=== PATIENT | male | born 1990 | race Caucasian/White ===

== ENCOUNTER → 2019-10-04 12:27 | Outpatient (CLI) | payer OTHER, SELFPAY ==
--- NOTE | 2019-10-04 12:37 | US_ITS ---
STUDY: RENAL ULTRASOUND - COMPLETE REASON FOR EXAM: Male, 29 years old. Possible kidney stones. TECHNIQUE: Ultrasound evaluation of the kidneys was performed with real-time and static matos-scale imaging. COMPARISON: None. FINDINGS: RIGHT KIDNEY: Normal location of the right kidney, which is normal in size. The right kidney measures 9.8 cm. There is a normal cortex of the right kidney. The renal cortex measures 1.8 cm. There is no right renal mass or cyst. There are no right renal calculi. There is no right hydronephrosis. DISTAL RIGHT URETER: There is non-visualization of the distal right ureter. There is no demonstrated right ureterovesical junction calculus. There is no demonstrated right ureteral jet. LEFT KIDNEY: Normal location of the left kidney, which is normal in size. The left kidney measures 10.4 cm. There is a normal cortex of the left kidney. The renal cortex measures 1. cm. There is no left renal mass or cyst. There are no left renal calculi. There is no left hydronephrosis. DISTAL LEFT URETER: There is non-visualization of the distal left ureter. There is no demonstrated left ureterovesical junction calculus. There is no demonstrated left ureteral jet. BLADDER: The distended urinary bladder has a volume of 169 ml. There is a normal wall thickness of the distended urinary bladder. There is no demonstrated mass within the urinary bladder. There are no demonstrated bladder calculi. US/Kidney and Bladder IMPRESSION: Normal ultrasound of the kidneys and urinary bladder. Electronically Signed: Chris Parsons DO at 23:29 EST Tel [phone], Service support ,
== END ==
PROVIDERS: Family Provider Family Medicine; PCP Family Medicine; Referring Provider Family Medicine; Visit Provider Family Medicine
DX: N20.0 Calculus of kidney (principal)
CPT/HCPCS: 76770

== ENCOUNTER 2020-09-26 16:57 | Emergency (ER) | payer OTHER, SELFPAY ==
[2020-09-26 16:59] VITALS: BP 111/89; BP 120/71; PULSE 106; PULSE 97; RESP 11; RESP 29; TEMP 36.6; O2SAT 96; O2SAT 99; BMI 25.2
--- NOTE | 2020-09-26 17:16 | CT_ITS ---
STUDY: CT BRAIN WITHOUT CONTRAST REASON FOR EXAM: Male, 30 years old. Seizure. No history of seizure activity. RADIATION DOSAGE (If Supplied By Facility): CTDIvol = ( 44.99 ) mGy, DLP = ( 796.11 ) mGycm TECHNIQUE: Transaxial CT imaging of the brain was performed without administration of intravenous contrast material. Individualized dose optimization techniques were used for this CT. COMPARISON: No relevant priors. FINDINGS: Normal soft tissue structures. Normal calvarium. Normal size ventricles and extra-axial spaces for the patient''s age. Normal white matter tracts of the cerebral hemispheres. Normal basal ganglia and thalami. Normal brainstem. Normal cerebellum. There is no intracranial hemorrhage. There are no findings of an acute ischemic infarction. Normal visualized paranasal sinuses. CT/Brain/Head without Contrast IMPRESSION: Normal unenhanced CT scan of the brain. Electronically Signed: Chris Parsons DO at 17:53 EST Tel [phone], Service support ,
--- NOTE | 2020-09-26 17:17 | EKG12_ITS ---
Test Reason : SEIZURE Blood Pressure : / mmHG Vent. Rate : 097 BPM Atrial Rate : 097 BPM P-R Int : 134 ms QRS Dur : 092 ms QT Int : 362 ms P-R-T Axes : 053 022 047 degrees QTc Int : 459 ms Normal sinus rhythm Normal ECG Confirmed by LIAN ACEVEDO, SLOANE ([id number]), publication editor GAVI LIU ([id number]) on 09/28/2020 8:25:53 AM Referred By: MADHAVI Confirmed By:SLOANE BEAL MD
--- NOTE | 2020-09-26 17:18 | ED.VIS.GEN ---
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 It also contains glutamine, taurine, l-carnitine, tyrosine, as well as other lesser ingredients. He states after taking it he did not feel well that day, has been having racing thoughts since then, unable to sleep for the last 2 nights, and as result has been feeling extremely fatigued. He admits to some myalgias. He has had a minor cough. He denies any dyspnea, abdominal pain or other GI symptoms states yesterday he remembers having some chest discomfort when he moved but does not have it now. Today he apparently had a witnessed tonic-clonic seizure that lasted about 40 or 60 seconds, it resolved on its own and he only had the 1, his sister witnessed it and then called EMS. Patient is amnestic to this and does not remember feeling anything before it happened, he was postictal for 15 or 20 minutes per EMS. He has never had a seizure before. He has a history of opiate addiction and has been on Suboxone for the last 1.5 years or so, he used oral oxycodone no IV drugs. He has not used anything recently, and took his last Suboxone today, and states that it was unusual in that it tasted funny/different. He has not had anything to eat or drink today because of his fatigue and lack of appetite. Patient presents during the national coronavirus emergency declaration/pandemic. Denies any known contact with anyone infected with COVID-19, and denies having had the illness that he knows of this past year or so. Denies traveling out of the immediate area recently. - Past Medical History (1) Opioid dependence Status: Chronic Past Medical History - Allergies and Home Meds Allergies/Adverse Reactions: Allergies amoxicillin Allergy (Verified 09/26/20 16:57) Rash Primary Care Physician: Jarred Serrano MD [STAFF PHYSICIAN] - As soon as possible (call for appt) Lives: With Family Smoking Status: Unknown if ever smoked Drugs: - - Opioid addiction in the past. Currently on Suboxone. Review of Systems General: Reports: Malaise. Denies: Chills, Fever, Sweats Eyes: Denies: Visual changes - bilaterally, Diplopia ENT: Denies: Bilateral ear pain, Rhinorrhea, Sore throat Cardiovascular: Reports: Chest pain - Gone today. See HPI.. Denies: Palpitations Respiratory: Reports: Cough. Denies: Dyspnea, Sputum, Dyspnea on exertion Gastrointestinal: Denies: Abdominal pain, Nausea, Vomiting, Diarrhea, Melena, Hematochezia Genitourinary: Denies: Dysuria, Hematuria, Frequency Musculoskeletal: Reports: Myalgias. Denies: Back pain, Swelling, Extremity Pain Skin: Denies: Rash, Wounds Neurological: Reports: Headache - Mild. Denies: Weakness, Numbness Physical Exam Vital Signs/Narrative: Vital Signs Temp Pulse Resp BP Pulse Ox 09/26/20 16:59 97.9 F 97 11 L 120/71 96 Inital Vital Signs reviewed: Yes General: Well nourished, Well developed, No Acute Distress Head: Normocephalic, Atraumatic Eyes: Perrl, EOMI ENT: Moist mucous membranes, No rhinorrhea Neck: Supple, Nontender, No lymphadenopathy, - - No meningismus or tenderness Cardiovascular: Regular rate, Regular rhythm, No murmurs, Tachycardia - Mild Respiratory: No distress, CTA bilaterally, Chest nontender Abdomen: Soft, Nontender, Nondistended, Normal bowel sounds Back: Nontender, Normal Inspection. Negative for: CVA tenderness Extremities: Nontender, No edema. Negative for: Calf Tenderness Skin: Normal color, No rash, No Trauma Neurological: Alert, Oriented x3 - Appropriate., Cranial nerves II-XII grossly intact, Normal Strength, Normal Sensation Psychological: Normal affect, Normal Mood Diagnostic/Tx/Re-eval Impressions Brain CT 09/26/20 17:16 IMPRESSION: Normal unenhanced CT scan of the brain. Electronically Signed: Chris Parsons DO at 17:53 EST Tel [phone], Service support , Chest X-Ray 09/26/20 17:23 IMPRESSION: Normal x-ray examination of the chest. Electronically Signed: Chris Parsons DO at 17:37 EST Tel [phone], Service support , 09/26/20 17:16 Brain/Head without Contrast [CT] Stat 09/26/20 17:23 Chest 1 View (Portable) [RAD] Stat 09/26/20 17:20 Mucosa - Nose SARS-CoV-2 Antigen (Rapid) - Final - NEGATIVE Laboratory Tests 09/26/20 09/26/20 09/26/20 Range/Units 19:10 17:05 17:05 WBC 12.9 H (4.4-11.0) K/mm3 RBC 5.65 (4.6-6.2) M/mm3 Hgb 16.5 (13.0-16.5) g/dL Hct 48.1 (40-54) % MCV 85.1 (80-94) fL MCH 29.2 (27.0-32.0) pg MCHC 34.3 (32-36) g/dL RDW Std Deviation 39.6 (35.1-43.9) fl RDW Coeff of Bob 12.7 (11.6-14.6) % Plt Count 264 (150-450) K/mm3 MPV 9.9 (6.2-12.0) fl Immature Gran % (Auto) 1.800 H (0.0-0.9) % Neut % (Auto) 88.5 H (47-70) % Lymph % (Auto) 7.8 L (19-41) % [place] % (Auto) 1.6 (0-10) % Eos % (Auto) 0.1 (0-5) % Baso % (Auto) 0.2 (0-1) % Absolute Neuts (auto) 11.4 H (2.0-7.7) X10^3/uL Absolute Lymphs (auto) 1.01 (0.83-4.51) X10^3/uL Nucleated RBC % 0 (0-5) % Sodium (136-145) mmol/L Potassium (3.5-5.1) mmol/L Chloride (98-107) mmol/L Carbon Dioxide (21.0-32.0) mmol/L Anion Gap (5-15) BUN (7-18) mg/dL Creatinine (0.70-1.30) mg/dL Estim Creat Clear Calc ml/min Est GFR (MDRD) Af Amer (>60) mL/min Est GFR (MDRD) Non-Af (>60) mL/min BUN/Creatinine Ratio (10-20) RATIO Glucose (74-106) mg/dL Calcium (8.5-10.1) mg/dL Troponin I (<0.045) ng/mL Urine Opiates Screen NEGATIVE (< 300 ng/mL) Urine Methadone Screen NEGATIVE (< 300 ng/mL) Ur Barbiturates Screen NEGATIVE (< 200 ng/mL) Ur Phencyclidine Scrn NEGATIVE (< 25 ng/mL) Ur Amphetamines Screen NEGATIVE (<1000 ng/mL) U Methamphetamin-MDMA NEGATIVE (< 500 ng/mL) U Benzodiazepines Scrn NEGATIVE (< 200 ng/mL) Urine Cocaine Screen NEGATIVE (< 300 ng/mL) U Cannabinoids Screen NEGATIVE (< 50 ng/mL) Ur Drug Screen Comment Ethyl Alcohol 3.0 mg/dL 09/26/20 Range/Units 17:05 WBC (4.4-11.0) K/mm3 RBC (4.6-6.2) M/mm3 Hgb (13.0-16.5) g/dL Hct (40-54) % MCV (80-94) fL MCH (27.0-32.0) pg MCHC (32-36) g/dL RDW Std Deviation (35.1-43.9) fl RDW Coeff of Bob (11.6-14.6) % Plt Count (150-450) K/mm3 MPV (6.2-12.0) fl Immature Gran % (Auto) (0.0-0.9) % Neut % (Auto) (47-70) % Lymph % (Auto) (19-41) % [place] % (Auto) (0-10) % Eos % (Auto) (0-5) % Baso % (Auto) (0-1) % Absolute Neuts (auto) (2.0-7.7) X10^3/uL Absolute Lymphs (auto) (0.83-4.51) X10^3/uL Nucleated RBC % (0-5) % Sodium 136 (136-145) mmol/L Potassium 4.0 (3.5-5.1) mmol/L Chloride 106 (98-107) mmol/L Carbon Dioxide 15.0 L (21.0-32.0) mmol/L Anion Gap 15 (5-15) BUN 10 (7-18) mg/dL Creatinine 1.61 H (0.70-1.30) mg/dL Estim Creat Clear Calc 65.87 ml/min Est GFR (MDRD) Af Amer 64 (>60) mL/min Est GFR (MDRD) Non-Af 53 L (>60) mL/min BUN/Creatinine Ratio 6.2 L (10-20) RATIO Glucose 146 H (74-106) mg/dL Calcium 9.5 (8.5-10.1) mg/dL Troponin I < 0.015 (<0.045) ng/mL Urine Opiates Screen (< 300 ng/mL) Urine Methadone Screen (< 300 ng/mL) Ur Barbiturates Screen (< 200 ng/mL) Ur Phencyclidine Scrn (< 25 ng/mL) Ur Amphetamines Screen (<1000 ng/mL) U Methamphetamin-MDMA (< 500 ng/mL) U Benzodiazepines Scrn (< 200 ng/mL) Urine Cocaine Screen (< 300 ng/mL) U Cannabinoids Screen (< 50 ng/mL) Ur Drug Screen Comment Ethyl Alcohol mg/dL - Rhythm Strip Rhythm Strip: Sinus Rhythm Rate: 97 Ectopy: None - EKG Initial EKG Interpretation: Sinus Rhythm, No Acute Injury Pattern - Medical Decision Making Patient was monitored and given a liter of IV fluids. His lab abnormalities including an elevated anion gap is likely due to a lactic acidosis from his seizure. This should be easily cleared with fluids and time. No need for retesting that. Other than mild leukocytosis that is nonspecific and commonly seen after seizures, and renal insufficiency, the rest of his work-up is negative. He had no other seizures for the 2-2.5 hours he was monitored here in the emergency department. His Covid test returned negative. CT head and chest x-ray are both normal. He will need close outpatient follow-up. Since he is just had one seizure, I do not think we need to place him on medication right now. He was given outpatient neurology's information to make an appointment. If he has another seizure he should return to the emergency department immediately. I do not think that the recent vitamin/amino acid supplement necessarily cause this, but until more is known about the etiology of this episode I would recommend discontinuing it which we discussed. We also discussed the fact that he is not to drive until he follows up with neurology. ED Disposition - Plan for ED Patient: Disposition: Home or Assisted Living Diagnosis: Grand mal seizure Instructions: ED Seizure New Onset Unknown ... Referrals: Jarred Serrano MD [STAFF PHYSICIAN] - As soon as possible (call for appt) Additional Instructions: Abstain from taking the alertness supplement until you see neurology. If you have another seizure before that, return to the ER.
--- NOTE | 2020-09-26 17:23 | RAD_ITS ---
STUDY: X-RAY CHEST REASON FOR EXAM: Male, 30 years old. Part from home after having to 1 minute full body seizure. Denies seizure activity. TECHNIQUE: Single AP portable view of the chest. COMPARISON: None. FINDINGS: The lungs are clear and expanded. There is no demonstrated pleural abnormality. Normal size heart. Normal mediastinum and rosalinda. Normal visualized pulmonary arteries. Normal visualized aortic arch and descending thoracic aorta. Normal visualized thoracic spine. Normal visualized ribs, clavicles, and shoulders. There is no demonstrated abnormality of the visualized soft tissue structures of the upper abdomen. RAD/Chest 1 View (Portable) IMPRESSION: Normal x-ray examination of the chest. Electronically Signed: Chris Parsons DO at 17:37 EST Tel [phone], Service support ,
--- NOTE | 2020-09-26 17:33 | NURSING ---
NO OLD EKGS
[2020-09-26 17:37] LABS: Absolute Lymphocyte Count 1.01 X10^3/uL (0.83-4.51); Absolute Neutrophil Count 11.4 X10^3/uL (2.0-7.7); Basophil# 0.03 X10^3/uL; Basophil% 0.2 % (0-1); Eosinophil# 0.01 X10^3/uL; Eosinophils% 0.1 % (0-5); Hematocrit 48.1 % (40-54); Hemoglobin 16.5 g/dL (13.0-16.5); Lymphocyte # 1.01 X10^3/ul (4.0); Lymphocyte % 7.8 % (19-41); Mean Corp Hgb Conc 34.3 g/dL (32-36); Mean Corpuscular Hgb 29.2 pg (27.0-32.0); Mean Corpuscular Volume 85.1 fL (80-94); Mean Platelet Vol. 9.9 fl (6.2-12.0); Monocyte# 0.21 X10^3/uL; Monocyte% 1.6 % (0-10); NRBC Flagged by Analyzer 0 % (0-5); Neutrophil # 11.39 X10^3/uL (2.7-7.7); Neutrophil % 88.5 % (47-70); Platelet Count 264 K/mm3 (150-450); RBC Distribution Width CV 12.7 % (11.6-14.6); RBC Distribution Width SD 39.6 fl (35.1-43.9); Red Blood Count 5.65 M/mm3 (4.6-6.2); White Blood Count 12.9 K/mm3 (4.4-11.0)
[2020-09-26 17:44] LABS: Anion Gap 15 (5-15); BUN 10 mg/dL (7-18); BUN/Creat Ratio 6.2 RATIO (10-20); Calcium,Total 9.5 mg/dL (8.5-10.1); Chloride 106 mmol/L (98-107); Creatinine, Serum 1.61 mg/dL (0.70-1.30); EST Glomerular Filtration Rate 53 mL/min (>60); Est Glom Filt Rate - Afr Amer 64 mL/min (>60); Estimated Creatinine Clearance 65.87 ml/min; Glucose 146 mg/dL (74-106); Sodium Level 136 mmol/L (136-145)
[2020-09-26 20:26] LABS: Amphetamine Urine VISTA NEGATIVE (<1000 ng/mL); Barbiturate Urine VISTA NEGATIVE (< 200 ng/mL); Benzodiazepine Urine VISTA NEGATIVE (< 200 ng/mL); Cocaine Urine VISTA NEGATIVE (< 300 ng/mL); Ecstacy Urine VISTA NEGATIVE (< 500 ng/mL); Methadone Urine VISTA NEGATIVE (< 300 ng/mL); PCP Urine VISTA NEGATIVE (< 25 ng/mL); THC Urine VISTA NEGATIVE (< 50 ng/mL); Vista UDS pH Range 5
[2020-09-26 20:40] VITALS: PULSE 91; RESP 18
[2020-09-26 21:15] VITALS: BP 123/88; PULSE 98; RESP 16; O2SAT 97
== END 2020-09-26 21:33 | disposition home or self-care (01) ==
LOC: ED 19:03
PROVIDERS: Emergency Provider Emergency Medicine; PCP Family Medicine
DX: G40.409 Other generalized epilepsy and epileptic syndromes, not intractable, without status epilepticus (principal)
CPT/HCPCS: 70450; 71045; 80048; 80307; 82077; 84484; 85025; 87426; 93005; 99285; A4216

== ENCOUNTER → 2020-10-03 09:53 | Outpatient (CLI) | payer OTHER, SELFPAY ==
[2020-09-27 09:33] VITALS: BMI 25.1
[2020-10-03 10:27] LABS: Hematocrit 48.3 % (40-54); Hemoglobin 15.9 g/dL (13.0-16.5); Mean Corp Hgb Conc 32.9 g/dL (32-36); Mean Corpuscular Hgb 28.5 pg (27.0-32.0); Mean Corpuscular Volume 86.7 fL (80-94); Mean Platelet Vol. 9.9 fl (6.2-12.0); Platelet Count 230 K/mm3 (150-450); RBC Distribution Width SD 41.4 fl (35.1-43.9); Red Blood Count 5.57 M/mm3 (4.6-6.2); White Blood Count 6.3 K/mm3 (4.4-11.0)
[2020-10-03 10:54] LABS: Vitamin B12 458 pg/mL (211-911)
[2020-10-03 11:04] LABS: ALB/GLOB Ratio 1.1 RATIO (0.9-2.4); AST(SGOT) 27 U/L (15-37); Alanine Aminotransfer ALT/SGPT 30 U/L (16-61); Albumin, Serum 4.1 g/dL (3.2-5.0); Alkaline Phosphatase 111 U/L (45-117); Anion Gap 7 (5-15); BUN 11 mg/dL (7-18); BUN/Creat Ratio 10.7 RATIO (10-20); Calcium,Total 8.9 mg/dL (8.5-10.1); Chloride 105 mmol/L (98-107); Creatinine, Serum 1.03 mg/dL (0.70-1.30); EST Glomerular Filtration Rate 89 mL/min (>60); Est Glom Filt Rate - Afr Amer 107 mL/min (>60); Globulin 3.7 g/dL (2.2-4.2); Glucose 94 mg/dL (74-106); Potassium 3.8 mmol/L (3.5-5.1); Protein, Total 7.8 g/dL (6.4-8.2); Sodium Level 138 mmol/L (136-145)
== END ==
PROVIDERS: PCP Family Medicine; Referring Provider Nurse Practitioner Family; Visit Provider Nurse Practitioner Family
DX: R53.83 Other fatigue (principal); R56.9 Unspecified convulsions; R79.89 Other specified abnormal findings of blood chemistry
CPT/HCPCS: 36415; 80053; 82607; 82746; 84443; 85027

== ENCOUNTER → 2020-12-14 06:52 | Outpatient (CLI) | payer OTHER, SELFPAY ==
[2020-09-27 09:33] VITALS: BMI 25.1
--- NOTE | 2020-12-14 08:55 | TELEMED_ITS ---
[facility] has confirmed receipt of a request for visit. This document confirms receipt of the order initiating the consult. To find the results of the consultation, please view the patient's reports for the scanned Telemed Consult.
== END ==
PROVIDERS: PCP Family Medicine; Referring Provider Psychiatry & Neurology Neurology; Visit Provider Psychiatry & Neurology Neurology
DX: R56.9 Unspecified convulsions (principal)
CPT/HCPCS: 95819

== ENCOUNTER → 2020-12-18 11:22 | Outpatient (CLI) | payer OTHER, SELFPAY ==
[2020-09-27 09:33] VITALS: BMI 25.1
--- NOTE | 2020-12-18 11:38 | RAD_ITS ---
INDICATION: chronic mid-back pain, pain started after having a seizure in September. Receives treatment at a chiropractor but pain is not improving. EXAMINATION/TECHNIQUE: X-RAY - XR Spine Thoracic 3 Views COMPARISON: None FINDINGS: VERTEBRAE: Preserved vertebral body height. No fracture. No spondylolisthesis. Preservation of the normal thoracic kyphosis. No significant facet arthropathy. DISCS: Minimal multilevel disc space narrowing and osteophytosis. INCLUDED CHEST/ABDOMEN: No acute abnormalities. RAD/Thoracic Spine 3 Views IMPRESSION: No acute abnormality. Minimal multilevel thoracic spondylosis. Electronically Signed: Shan Mao MD at 1:51 EDT Tel , Service support ,
== END ==
PROVIDERS: PCP Family Medicine; Referring Provider Nurse Practitioner Family; Visit Provider Nurse Practitioner Family
DX: M54.6 Pain in thoracic spine (principal); G89.29 Other chronic pain
CPT/HCPCS: 72072

== ENCOUNTER → 2021-08-02 | Outpatient (CLI) | payer OTHER, SELFPAY | END | disposition home or self-care (01) | PROVIDERS: PCP Family Medicine; Visit Provider Family Medicine | DX: U07.1 COVID-19 (principal); J06.9 Acute upper respiratory infection, unspecified | CPT/HCPCS: 87635; U0005; U0003 ==

== ENCOUNTER → 2022-05-28 | Outpatient (CLI) | payer OTHER, SELFPAY ==
--- NOTE | 2022-05-28 16:26 | MRI_ITS ---
HISTORY: Pain between scapulae, no known injury, evaluate radiculopathy. TECHNIQUE: Multiplanar and multisequence MR images of the cervical spine were obtained without contrast. 265 images. COMPARISON: None. FINDINGS: VERTEBRAE: Cervical vertebral body heights maintained. Mild degenerative endplate changes without significant bone marrow signal abnormality. Minimal chronic anterior wedging of T3 and T4. Small T5 vertebral body hemangioma. VERTEBRAL ALIGNMENT: No anterior or posterior subluxation. SPINAL CORD: Cervical cord signal and morphology within normal limits. SOFT TISSUES: No prevertebral fluid collection. INTERVERTEBRAL DISCS: C2-3: No significant posterior disc protrusion, central canal stenosis, or foraminal narrowing. C3-4: Mild central disc perfusion resulting in mild central canal stenosis. No significant foraminal narrowing. C4-5: Very mild posterior disc bulge osteophyte complex resulting in mild central canal stenosis. No significant foraminal narrowing. C5-6: Mild posterior disc bulge osteophyte complex resulting in mild-moderate central canal stenosis. No significant foraminal narrowing. C6-7: Mild central disc protrusion resulting in mild central canal stenosis. No significant foraminal narrowing. C7-T1: No significant posterior disc protrusion, central canal stenosis, or foraminal narrowing. MRI/Spine Cervical (Routine) IMPRESSION: Mild multilevel degenerative disc disease of the cervical spine. Mild-moderate spinal canal stenosis at C5-6. Electronically Signed: Natalie Lemus MD at 9:20 EDT ,
== END | disposition home or self-care (01) ==
LOC: MRI 16:21
PROVIDERS: PCP Family Medicine; Visit Provider Anesthesiology Pain Medicine
DX: M54.12 Radiculopathy, cervical region (principal)
CPT/HCPCS: 72141